=== PATIENT | female | born 1930 | race Caucasian/White ===

== ENCOUNTER 2017-08-12 14:16 | Emergency (ER) | payer OTHER ==
[~2017-08-12] VITALS: Ht 167.6 cm; Wt 67.6 kg
[2017-08-12 14:23] VITALS: BP_SYST 107
[2017-08-12] MEDS ORDERED: BACITRACIN 1 GM OINT TP ONE (16:15)
[2017-08-12 16:20] VITALS: BP_SYST 122
== END 2017-08-12 16:20 | disposition home or self-care (01) ==
LOC: EDBD 14:16 → SED 14:16
DX: M19.90 Unspecified osteoarthritis, unspecified site (principal); F03.90 Unspecified dementia, unspecified severity, without behavioral disturbance, psychotic disturbance, mood disturbance, and anxiety; E11.9 Type 2 diabetes mellitus without complications; I10 Essential (primary) hypertension; K21.9 Gastro-esophageal reflux disease without esophagitis; Z86.79 Personal history of other diseases of the circulatory system
CPT/HCPCS: 99284